=== PATIENT | female | born 1995 | race Caucasian/White ===

== ENCOUNTER 2018-02-07 22:56 | Emergency (ER) | payer SELFPAY, OTHER | END 2018-02-08 00:45 | disposition left against medical advice (07) | LOC: FTE 22:56 | DX: Z53.21 Procedure and treatment not carried out due to patient leaving prior to being seen by health care provider (principal) ==

== ENCOUNTER 2018-09-26 19:16 | Emergency (ER) | payer OTHER | END 2018-09-26 21:10 | disposition home or self-care (01) | LOC: FTE 19:16 | DX: M25.512 Pain in left shoulder (principal) | CPT/HCPCS: 72040; 99283-25 ==